=== PATIENT | male | born 1990 | race African-American/Black ===

== ENCOUNTER 2018-06-08 19:15 | Emergency (ER) | payer OTHER ==
[~2018-06-08] VITALS: Ht 177.8 cm; Wt 72.6 kg
[2018-06-08 21:58] LABS: HEMATOCRIT 42.8 % (42.0-52.0); HEMOGLOBIN 14.5 gm/dL (14.0-18.0); MCH 29.7 pg (26.0-34.0); MCHC 33.9 g/dL (28.0-37.0); MCV 87.5 fL (80.0-100.0); PLATELET COUNT 167 thou/uL (150-400); RBC 4.89 mil/uL (4.50-6.00); RDW 12.7 % (10.5-14.5); WBC 11.6 thou/uL (4.0-11.0)
[2018-06-08 22:13] LABS: CREATININE 1.2 mg/dL (0.7-1.3); POTASSIUM 3.2 mmol/L (3.5-5.1)
[2018-06-08 22:19] LABS: ALBUMIN 3.6 g/dL (3.4-5.0); DIRECT BILIRUBIN 0.1 mg/dL (<0.1-0.3); TOTAL BILIRUBIN 0.6 mg/dL (<0.1-1.0); TOTAL PROTEIN 7.5 g/dL (6.4-8.2)
[2018-06-08 22:28] LABS: ABSOLUTE NEUTROPHILS 10.1 thou/uL (1.4-8.2); ATYPICAL LYMPHS 2 %
[2018-06-08 22:29] LABS: LARGE PLATELETS OCCASIONAL
[2018-06-09 00:47] VITALS: BP 108/55
[2018-06-09] MEDS ORDERED: BENTYL 20 MG TA20 M1 PO (01:11)
[2018-06-09] MEDS ORDERED: ZOFRAN ODT4 MG PO (01:11)
== END 2018-06-09 01:15 | disposition home or self-care (01) ==
LOC: ER 19:15
PROVIDERS: Emergency Medicine
DX: R10.84 Generalized abdominal pain (principal); R00.0 Tachycardia, unspecified; R11.2 Nausea with vomiting, unspecified